=== PATIENT | male | born 1955 | race Caucasian/White ===

== ENCOUNTER 2018-08-10 19:53 | Inpatient (IN) | payer BC ==
[2018-08-10] MEDS ORDERED: ASPIRIN 81 MG TABLET, CHEWABLE PO ONE (20:29)
--- NOTE | 2018-08-10 20:31 | ER Document Report ---
ED Respiratory Problem - General Chief Complaint: Shortness Of Breath Stated Complaint: SHORTNESS OF BREATH Time Seen by Provider: 08/10/18 20:21 Mode of Arrival: Ambulatory Information source: Patient Notes: Patient is a 62-year-old male who presents with chief complaint of shortness of breath and chest tightness. Patient reports that the shortness of breath started on Saturday with exertion. He has been working on his yard over the last couple of days in the shortness of breath has become worse. Patient now reports tightness across his chest that started this afternoon states it felt like "acid reflux". Patient reports associated diaphoresis without nausea or radiation of the tightness/pain. Patient denies any recent illness however he states he may have felt like he has had chills. Patient denies any past medical history other than hypertension that he does not take medication for. Patient reports that he does not have a primary care provider. Agent denies use of tobacco however reports daily consumption of 2-4 beers per day, denies any illicit drug use. TRAVEL OUTSIDE OF THE [place] IN LAST 30 DAYS: Yes - Related Data Allergies/Adverse Reactions: No Known Allergies Allergy (Verified 08/10/18 19:54) Past Medical History - General Information source: Patient - Social History Smoking Status: Never Smoker Frequency of alcohol use: 2-4 beers per day Drug Abuse: None Lives with: Spouse/Significant other Family History: Reviewed & Not Pertinent - Past Medical History Cardiac Medical History: Reports: Hx Hypertension - "mild HTN" Denies: Hx Atrial Fibrillation, Hx Congestive Heart Failure, Hx Coronary Artery Disease, Hx Heart Attack, Hx Hypercholesterolemia, Hx Peripheral Vascular Disease, Hx Heart Murmur Pulmonary Medical History: Denies: Hx Tuberculosis Past Surgical History: Reports: Hx Tonsillectomy. Denies: Hx Appendectomy, Hx Bowel Surgery, Hx Cholecystectomy, Hx Coronary Artery Bypass Graft, Hx Gastric Bypass Surgery, Hx Herniorrhaphy, Hx Pacemaker - Immunizations Hx Diphtheria, Pertussis, Tetanus Vaccination: Yes Physical Exam - Vital signs Vitals: Temp Pulse Resp BP Pulse Ox 97.3 F 118 H 28 H 189/111 H 93 08/10/18 19:56 08/10/18 19:56 08/10/18 19:56 08/10/18 19:56 08/10/18 19:56 - Notes Notes: PHYSICAL EXAMINATION: GENERAL: Well-appearing, well-nourished and in moderate distress. HEAD: Atraumatic, normocephalic. EYES: Pupils equal round and reactive to light, extraocular movements intact, sclera anicteric, conjunctiva are normal. ENT: Nares patent, oropharynx clear without exudates. Moist mucous membranes. NECK: Normal range of motion, supple without lymphadenopathy LUNGS: Coarse breath sounds bilaterally with Rales throughout. HEART: Regular rate and rhythm without murmurs ABDOMEN: Soft, nontender, nondistended abdomen. No guarding, no rebound. No masses appreciated. Musculoskeletal: Normal range of motion, no pitting or edema. No cyanosis. NEUROLOGICAL: Cranial nerves grossly intact. Normal speech, normal gait. Normal sensory, motor exams PSYCH: Normal mood, normal affect. SKIN: Warm, Dry, normal turgor, no rashes or lesions noted. Course - Re-evaluation Re-evalutation: Patient arrives to bed 21, mildly tachypneic, heart rate 115, pulse oximetry 93- 94%. Crackles/rales auscultated bilaterally. Dr. Coates at bedside to evaluate this patient. Recommendation to start patient on BiPAP, give sublingual nitroglycerin and 20 mg of IV Lasix. 08/10/18 20:53 Reevaluated patient, patient resting on BiPAP, pulse ox has come up to 97%, respiratory rate down to 24, patient reports he is already feeling much improved. Currently awaiting lab work and chest x-ray. 08/10/18 22:15 Patient continues to rest comfortably on the BiPAP. Patient's lung sounds are improved. CBC and a venous blood gas are unremarkable. BNP is elevated at 2090. Initial troponin is 0.048. Patient does also have elevated AST and ALT. Chest x-ray appears to have vascular congestive pattern. Tachycardia and hypertension have significantly improved. 08/10/18 23:50 Patient continues to rest, spouse is at bedside. Vital signs are stable at this time. Awaiting second troponin and then will admit to hospitalist. 08/11/18 01:31 Repeat troponin 0.101, patient denies any chest pain whatsoever. Repeat EKG reveals a sinus rhythm, rate of [address] segment changes. Consulted Dr. Crook who accepts the patient for admission. - Vital Signs Vital signs: Temp Pulse Resp BP Pulse Ox 97.3 F 118 H 13 147/103 H 98 08/10/18 19:56 08/10/18 19:56 08/11/18 02:01 08/11/18 02:00 08/11/18 02:01 - Laboratory Result Diagrams: 08/10/18 20:30 08/10/18 20:30 Laboratory results interpreted by me: 08/10/18 08/10/18 20:30 20:30 AST 222 H ALT 179 H NT-Pro-B Natriuret Pep 0 H Discharge - Discharge Clinical Impression: CHF (congestive heart failure) Qualifiers: Heart failure type: unspecified Heart failure chronicity: acute Qualified Code( s): I50.9 - Heart failure, unspecified Condition: Stable Disposition: ADMITTED INPATIENT Admitting Provider: Hospitalist Unit Admitted: Telemetry
[2018-08-10] MEDS ORDERED: FUROSEMIDE INJ/PF 20 MG/2 ML SDV IV ONE (20:44)
[2018-08-10 20:48] LABS: ABSOLUTE EOSINOPHILS # (AUTO) 0.1 10^3/uL (0.0-0.6); ABSOLUTE LYMPHOCYTES (AUTO) 1.9 10^3/uL (0.5-4.7); ABSOLUTE MONOCYTES (AUTO) 0.6 10^3/uL (0.1-1.4); ABSOLUTE NEUT (AUTO) 4.1 10^3/uL (1.7-8.2); BASOPHILS % (AUTO) 0.4 % (0-2); EOSINOPHILS % (AUTO) 0.8 % (0-6); HEMATOCRIT 43.1 % (37.9-51.0); HEMOGLOBIN 15.2 g/dL (13.5-17.0); LYMPHOCYTES % (AUTO) 28.4 % (13-45); MEAN CORPUSCULAR HEMOGLOBIN 33.2 pg (27.0-33.4); MEAN CORPUSCULAR HGB CONC 35.2 g/dL (32.0-36.0); MEAN CORPUSCULAR VOLUME 94 fl (80-97); MONOCYTES % (AUTO) 9.3 % (3-13); PLATELET COUNT 224 10^3/uL (150-450); RED BLOOD COUNT 4.58 10^6/uL (4.35-5.55); RED CELL DISTRIBUTION WIDTH 13.8 % (11.5-14.0); SEGMENTED NEUTROPHILS % (AUTO) 61.1 % (42-78); TOTAL CELLS COUNTED % (AUTO) 100 %; VENOUS BLOOD BASE EXCESS 3.9 mmol/L; VENOUS BLOOD HCO3 29.9 mmol/L (20-32); VENOUS BLOOD PCO2 49.9 mmHg (35-63); VENOUS BLOOD PH 7.4 (7.30-7.42); WHITE BLOOD COUNT 6.8 10^3/uL (4.0-10.5)
[2018-08-10] MEDS: NITROGLYCERIN 0.4 MG/TAB 25 TAB/BOTTLE SL PRN ×2 (20:58→22:20)
[2018-08-10 21:11] LABS: ALANINE AMINOTRANSFERASE 179 U/L (21-72); ALBUMIN 4.4 g/dL (3.5-5.0); ALKALINE PHOSPHATASE 102 U/L (38-126); ANION GAP 13 (5-19); ASPARTATE AMINO TRANSFERASE 222 U/L (17-59); BILIRUBIN,DIRECT 0.4 mg/dL (0.0-0.4); BILIRUBIN,TOTAL 0.9 mg/dL (0.2-1.3); BLOOD UREA NITROGEN 14 mg/dL (7-20); CALCIUM 9.7 mg/dL (8.4-10.2); CARBON DIOXIDE 26 mmol/L (22-30); CHLORIDE 101 mmol/L (98-107); CREATINE KINASE 84 U/L (55-170); GLUCOSE 105 mg/dL (75-110); POTASSIUM 4.1 mmol/L (3.6-5.0); SODIUM 140.3 mmol/L (137-145); TOTAL PROTEIN 7.6 g/dL (6.3-8.2)
[2018-08-10 21:23] LABS: CREATINE KINASE MB 1.82 ng/mL (<4.55)
[2018-08-10 21:29] LABS: TROPONIN I 0.048 ng/mL
--- NOTE | 2018-08-10 22:25 | RADIOLOGY REPORT (SQ) ---
EXAM DESCRIPTION: CLINICAL HISTORY: 62 years Male chest pain COMPARISON: 03/11/2012 COMPLETED DATE/TME: 08/10/2018 20:29 FINDINGS: Heart is enlarged. There is prominence of the central pulmonary vasculature. Small amount of fluid or atelectasis along the minor fissure on the right. Suspect early interstitial infiltrate with Jair B lines extending to the periphery. No definite pleural fluid or alveolar consolidation. IMPRESSION: Cardiac enlargement with central pulmonary vascular congestion and interstitial infiltrate which may reflect developing edema
--- NOTE | 2018-08-10 22:49 | EKG REPORT ---
SEVERITY:- ABNORMAL ECG - SINUS TACHYCARDIA PROBABLE LEFT ATRIAL ABNORMALITY NONSPECIFIC INTRAVENTRICULAR CONDUCTION DELAY ABNRM R PROG, CONSIDER ASMI OR LEAD PLACEMENT : Confirmed by: Sai Kendall MD 10-Aug-2018 22:48:29
[2018-08-11 00:16] LABS: APPEARANCE,URINE CLEAR; BILIRUBIN,URINE NEGATIVE (NEGATIVE); COLOR,URINE YELLOW; GLUCOSE, URINE NEGATIVE (NEGATIVE); KETONES,URINE NEGATIVE (NEGATIVE); LEUKOCYTE ESTERASE,URINE NEGATIVE (NEGATIVE); NITRITE,URINE NEGATIVE (NEGATIVE); PROTEIN,URINE NEGATIVE (NEGATIVE); URINE SPECIFIC GRAVITY 1.008; UROBILINOGEN,URINE NEGATIVE mg/dL (<2.0)
[2018-08-11] MEDS ORDERED: PROMETHAZINE HCL 25 MG TABLET PO PRN (02:27)
[2018-08-11] MEDS ORDERED: TEMAZEPAM 7.5 MG CAPSULE PO PRN (02:27)
[2018-08-11] MEDS ORDERED: IPRATROPIUM/ALBUTEROL 0.5-2.5 MG/3 ML AMPUL NEB PRN (02:27)
[2018-08-11] MEDS ORDERED: ACETAMINOPHEN 325 MG TABLET PO PRN (02:27)
[2018-08-11] MEDS ORDERED: MAG HYDROX/AL HYDROX/SIMETH SUSP 30 ML UDCUP PO PRN (02:27)
[2018-08-11] MEDS ORDERED: PROMETHAZINE HCL INJ 25 MG/1 ML VIAL IV PRN ×2 (02:27→07:30)
[2018-08-11] MEDS ORDERED: METOPROLOL TARTRATE PF/INJ 5 MG/5 ML SDV IV PRN (02:35)
--- NOTE | 2018-08-11 03:03 | PDOC H&P ---
History of Present Illness Admission Date/PCP: 08/11/18 01:57 None Patient complains of: SOB History of Present Illness: RUBENS PARSONS is a 62 year old male Comes to the emergency department with progressive shortness of breath since last Saturday, Saturday afternoon has been worsening, associated with cough, clear sputum, wheezing, diaphoresis, chest tightness, fluttering sensation. Denies nausea, vomiting, fever, chills, dizziness, lightheadedness, lower extremities edema. Denies any cardiac problems. Positive orthopnea. Initial blood pressure was 189/111 with a pulse of 120. Patient admits having hypertension but he does not take any medication at home. Patient does not follow with any primary care provider. Initial pulse oximetry 9394%, patient was started on BiPAP, given sublingual nitroglycerin and 20 mg of IV Lasix. Patient has urinated about a liter. Chest x-ray shows cardiomegaly with pulmonary vascular congestion/pulmonary edema. BNP 2090. AST 222, ALT 129. Past Medical History Cardiac Medical History: Reports: Hypertension - "mild HTN" Denies: Atrial Fibrillation, Congestive Heart Failure, Coronary Artery Disease, Myocardial Infarction, Hyperlipidema, Peripheral Vascular Disease, Heart Murmur Pulmonary Medical History: Denies: Tuberculosis Past Surgical History Past Surgical History: Reports: Tonsillectomy Denies: Appendectomy, Cholecystectomy, Coronary Artery Bypass Graft, Gastric Bypass Surgery, Herniorrhaphy, Pacemaker Social History Information Source: Patient Lives with: Spouse/Significant other Smoking Status: Never Smoker Frequency of Alcohol Use: Social Amount of Alcoholic Beverages Per Day: 2-3 beers a day Hx Recreational Drug Use: No Hx Prescription Drug Abuse: No Family History Family History: Reviewed & Not Pertinent Family History: Alive, 81 years old with no medical conditions. Father had hemophilia, at 62 years old Parental Family History Reviewed: Yes - As above Children Family History Reviewed: NA Sibling(s) Family History Reviewed.: NA Medication/Allergy Home Medications: No Home Medications 03/07/12 Allergies/Adverse Reactions: No Known Allergies Allergy (Verified 08/10/18 19:54) Review of Systems Review of Systems: As outlined in the HPI, others negative Physical Exam Vital Signs: Temp Pulse Resp BP Pulse Ox 97.3 F 118 H 13 147/103 H 98 08/10/18 19:56 08/10/18 19:56 08/11/18 02:01 08/11/18 02:00 08/11/18 02:01 Additional comments: General appearance: Well-developed, well-nourished, alert and cooperative, and appears to be in no acute distress. On BiPAP Head: Normocephalic Eyes: PEERL, EOMI, vision is grossly intact. Ears: External auditory canal and tympanic membranes clear, hearing grossly intact. Nose: No nasal discharge. Throat: Oral cavity and pharynx normal. No inflammation, swelling, exudate or lesions. Neck: Neck supple, nontender without lymphadenopathy, masses or thyromegaly. Cardiac: Normal S1 and S2. No S3, S4 or murmurs. Rhythm is regular. There is no peripheral edema, cyanosis or pallor. Extremities are warm and well perfused. Capillary refill is less than 2 seconds. No carotid bruits. Lungs: Bilateral decreased breath sounds with one third inferior rales, no rhonchi or wheezing. Not using accessory muscles. Abdomen: Positive bowel sounds. Soft. Nondistended, nontender. No guarding or rebound. No masses. No hepatosplenomegaly Extremities: No significant deformity or joint abnormality. No edema. Peripheral pulses intact. No varicosities. Neurological: Cranial nerves II through XII grossly intact. Strength and sensation symmetric and intact throughout. Reflexes 2+ throughout. Skin: Skin normal color, texture and turgor with no lesions or eruptions, warm and dry. Psychiatric: The mental examination revealed the patient was oriented to person , place, and time. The patient was able to demonstrate good judgment on recent , without hallucinations, abnormal affect or abnormal behaviors. Results Laboratory Results: 08/10/18 08/10/18 08/10/18 20:30 20:30 20:30 WBC 6.8 RBC 4.58 Hgb 15.2 Hct 43.1 MCV 94 MCH 33.2 MCHC 35.2 RDW 13.8 Plt Count 224 Seg Neutrophils % 61.1 Lymphocytes % 28.4 Monocytes % 9.3 Eosinophils % 0.8 Basophils % 0.4 Absolute Neutrophils 4.1 Absolute Lymphocytes 1.9 Absolute Monocytes 0.6 Absolute Eosinophils 0.1 Absolute Basophils 0.0 VBG pH VBG pCO2 VBG HCO3 VBG Base Excess Sodium 140.3 Potassium 4.1 Chloride 101 Carbon Dioxide 26 Anion Gap 13 BUN 14 Creatinine 1.09 Est GFR ( Amer) > 60 Est GFR (Non-Af Amer) > 60 Glucose 105 Calcium 9.7 Total Bilirubin 0.9 Direct Bilirubin 0.4 AST 222 H ALT 179 H Alkaline Phosphatase 102 Creatine Kinase 84 CK-MB (CK-2) 1.82 Troponin I 0.048 NT-Pro-B Natriuret Pep 2090 H Total Protein 7.6 Albumin 4.4 Urine Color Urine Appearance Urine pH Ur Specific [place] Urine Protein Urine Glucose (UA) Urine Ketones Urine Blood Urine Nitrite Urine Bilirubin Urine Urobilinogen Ur Leukocyte Esterase Urine WBC (Auto) Urine RBC (Auto) U Hyaline Cast (Auto) Urine Mucus (Auto) Urine Ascorbic Acid 08/10/18 08/10/18 08/11/18 20:30 23:50 00:20 WBC RBC Hgb Hct MCV MCH MCHC RDW Plt Count Seg Neutrophils % Lymphocytes % Monocytes % Eosinophils % Basophils % Absolute Neutrophils Absolute Lymphocytes Absolute Monocytes Absolute Eosinophils Absolute Basophils VBG pH 7.40 VBG pCO2 49.9 VBG HCO3 29.9 VBG Base Excess 3.9 Sodium Potassium Chloride Carbon Dioxide Anion Gap BUN Creatinine Est GFR ( Amer) Est GFR (Non-Af Amer) Glucose Calcium Total Bilirubin Direct Bilirubin AST ALT Alkaline Phosphatase Creatine Kinase CK-MB (CK-2) Troponin I 0.101 NT-Pro-B Natriuret Pep Total Protein Albumin Urine Color YELLOW Urine Appearance CLEAR Urine pH 6.0 Ur Specific [place] 1.008 Urine Protein NEGATIVE Urine Glucose (UA) NEGATIVE Urine Ketones NEGATIVE Urine Blood NEGATIVE Urine Nitrite NEGATIVE Urine Bilirubin NEGATIVE Urine Urobilinogen NEGATIVE Ur Leukocyte Esterase NEGATIVE Urine WBC (Auto) 0 Urine RBC (Auto) 1 U Hyaline Cast (Auto) 4 Urine Mucus (Auto) RARE Urine Ascorbic Acid NEGATIVE Impressions: Chest X-Ray 08/10/18 20:29 IMPRESSION: Cardiac enlargement with central pulmonary vascular congestion and interstitial infiltrate which may reflect developing edema Assessment & Plan - Diagnosis (1) CHF exacerbation Qualifiers: Heart failure type: unspecified Qualified Code(s): I50.9 - Heart failure, unspecified Is this a current diagnosis for this admission?: Yes Plan: New onset CHF with patient. Comes with progressive shortness of breath. Chest x-ray found with cardiomegaly and pulmonary edema. Will keep the patient under telemetry monitoring. Lasix 40 mg IV every 12 hours. Cardiology consultation with Dr. Mc. Echocardiogram. Will start the patient on beta-blockers, JANET inhibitors and statins. Lipid panel and hemoglobin A1c in the morning. Good urine output almost a liter. We will sent urine drug screen. Will probably can wean him off BiPAP and start him on oxygen protocol via nasal cannula. Added magnesium to previous labs. (2) Hypertension Qualifiers: Hypertension type: unspecified Qualified Code(s): I10 - Essential (primary ) hypertension Is this a current diagnosis for this admission?: Yes Plan: Patient is aware that he has hypertension however he is not taking any antihypertensive medication and does not follow with any PCP. His initial blood pressure was 189/111 which came down to 144/97. I am starting the patient on Coreg, lisinopril, IV Lopressor as needed. (3) Transaminitis Is this a current diagnosis for this admission?: Yes Plan: AST 222 and ALT 179, no other to compare to. This is likely secondary to hepatic congestion. (4) Elevated troponin Is this a current diagnosis for this admission?: Yes Plan: Troponin 0 0.0 48, 0.101, patient does not have symptomatology of acute coronary syndrome. This is likely secondary to his CHF and tachycardia. Cardiac enzymes 3. - Time Time Spent: 30 to 50 Minutes - Inpatient Certification Based on my medical assessment, after consideration of the patient's comorbidities, presenting symptoms, or acuity I expect that the services needed warrant INPATIENT care.: Yes I certify that my determination is in accordance with my understanding of Medicare's requirements for reasonable and necessary INPATIENT services [42 CFR 412.3e].: Yes Medical Necessity: Risk of Complication if Not Cared For in Hospital
[2018-08-11 06:14] LABS: URINE AMPHETAMINES SCREEN NEGATIVE; URINE BENZODIAZEPINES SCREEN NEGATIVE; URINE COCAINE SCREEN NEGATIVE; URINE MARIJUANA (THC) SCREEN NEGATIVE; URINE METHADONE SCREEN NEGATIVE; URINE PHENCYCLIDINE SCREEN NEGATIVE
[2018-08-11 06:25] LABS: URINE BARBITURATES SCREEN NEGATIVE
--- NOTE | 2018-08-11 08:50 | EKG REPORT ---
SEVERITY:- ABNORMAL ECG - SINUS RHYTHM PROBABLE LEFT ATRIAL ABNORMALITY NONSPECIFIC INTRAVENTRICULAR CONDUCTION DELAY : Confirmed by: Abhilash Duke 11-Aug-2018 08:50:06
[2018-08-11] MEDS: ASPIRIN 81 MG TABLET, ENT COATED PO SCH (10:03)
[2018-08-11] MEDS: CARVEDILOL 6.25 MG TABLET PO SCH ×2 (10:03→23:00)
[2018-08-11] MEDS: LISINOPRIL 5 MG TABLET PO SCH (10:03)
[2018-08-11] MEDS: FUROSEMIDE INJ/PF 40 MG/4 ML SDV IV SCH ×2 (10:03→23:01)
[2018-08-11] MEDS: ENOXAPARIN SODIUM INJ 40 MG/0.4 ML DISP.SYRIN SUBCUT SCH (10:03)
[2018-08-11] MEDS ORDERED: REGADENOSON INJ 0.4 MG/5 ML DISP.SYRIN IV ONE (10:25)
[2018-08-11] MEDS ORDERED: CLOPIDOGREL BISULFATE 300 MG TABLET PO ONE (10:45)
--- NOTE | 2018-08-11 15:03 | Progress Note ---
Provider Note Provider Note: This patient was admitted by my colleague Dr. Crook this morning. When I visit, the patient is sitting up in bed comfortably with 2L O2. On. The patient states that he has congestive heart failure, although he has never been diagnosed with this. He states that it came on slowly over the past couple of weeks with worsening fatigue and shortness of breath with activity. He denies chest pain, but he states that he gets sweaty with even slight exertion. The patient had an elevated troponin upon arrival at the ED, but they have been trending down. The patient state that he is feeling better. He has received plavix, statin, beta vicki, and JANET I. I have considered adding a nitrate, but his blood pressures are marginal and I dont think he could tolerated. Dr. Duke has been consulted on this patient, and an echo and a stress test have been ordered and are pending. The patient is awake, alert, and oriented x 3. Heart and lung sounds are unremarkable. He is in no distress.
[2018-08-11] MEDS ORDERED: ATORVASTATIN CALCIUM 20 MG TABLET PO SCH (22:00)
--- NOTE | 2018-08-11 22:34 | PDOC CONSULTATION ---
Consultation Consult Date: 08/11/18 Attending physician:: ROSAMARIA LIM Consult reason:: CHF, Troponin elevated. History of Present Illness Admission Date/PCP: 08/11/18 01:57 Patient complains of: Shortness of breath History of Present Illness: RUBENS PARSONS is a 62 year old male Comes to the emergency department with progressive shortness of breath since last Saturday, Saturday afternoon has been worsening, associated with cough, clear sputum, wheezing, diaphoresis, chest tightness, fluttering sensation. Denies nausea, vomiting, fever, chills, dizziness, lightheadedness, lower extremities edema. Denies any cardiac problems. Positive orthopnea. Initial blood pressure was 189/111 with a pulse of 120. Patient admits having hypertension but he does not take any medication at home. Patient does not follow with any primary care provider. Initial pulse oximetry 9394%, patient was started on BiPAP, given sublingual nitroglycerin and 20 mg of IV Lasix. Patient has urinated about a liter. Chest x-ray shows cardiomegaly with pulmonary vascular congestion/pulmonary edema. BNP 2090. AST 222, ALT 129. This history obtained by the hospitalist was reviewed and confirmed. Patient does give history of previous hypertension but no history of CAD. Patient claims that he has been lazy about following up with physician. On more questioning, it seems that he has noted increasing fatigue, tiredness and shortness of breath for last several weeks. Patient felt much improved after IV Lasix. Past Medical History Cardiac Medical History: Reports: Hypertension - "mild HTN" Denies: Atrial Fibrillation, Congestive Heart Failure, Coronary Artery Disease, Myocardial Infarction, Hyperlipidema, Peripheral Vascular Disease, Heart Murmur Pulmonary Medical History: Denies: Tuberculosis Past Surgical History Past Surgical History: Reports: Tonsillectomy Denies: Appendectomy, Cholecystectomy, Coronary Artery Bypass Graft, Gastric Bypass Surgery, Herniorrhaphy, Pacemaker Social History Information Source: Patient Lives with: Spouse/Significant other Smoking Status: Never Smoker Frequency of Alcohol Use: Social Hx Recreational Drug Use: No Drugs: None Hx Prescription Drug Abuse: No - Advance Directive Resuscitation Status: Full Code Surrogate healthcare decision maker:: Patient's is the surrogate decision-maker Family History Family History: Reviewed & Not Pertinent Parental Family History Reviewed: Yes Children Family History Reviewed: Yes Sibling(s) Family History Reviewed.: Yes - Patient denies family history of premature CAD. Medication/Allergy Home Medications: Aspirin [Ecotrin 81 mg EC Tablet] 81 mg PO DAILY tabec 08/12/18 Atorvastatin Calcium [Lipitor 40 mg Tablet] 40 mg PO QHS #30 tablet 08/12/18 Carvedilol [Coreg 6.25 mg Tablet] 6.25 mg PO Q12 #60 tablet 08/12/18 Clopidogrel Bisulfate [Plavix 300 mg Tablet] 75 mg PO DAILY #90 tablet 08/12/18 Lisinopril [Prinivil 5 mg Tablet] 2.5 mg PO DAILY #30 tablet 08/12/18 Allergies/Adverse Reactions: No Known Allergies Allergy (Verified 08/10/18 19:54) Review of Systems Review of Systems: Please see history of present illness and past medical history as wall. Constitutional: No fever or chills reported. Head : No recent chronic headaches, recent head injury. Eyes: No recent eye pain, diplopia, redness, discharge, acute visual changes. Ears: No recent chronic ear pain, acute hearing loss, ear discharge. Oral cavity: No recent ulcerations, bleeding, oral cavity discomfort. Neck: No recent acute neck pain reported. Hematologic: No recent easy bruising or bleeding. Lymphatic: No recent lymph node enlargement reported. Cardiovascular system review: See history of present illness. Respiratory system review: No hemoptysis or blood clots in the lungs reported. Shortness of breath on exertion Gastrointestinal system review: Negative for any recent acute hematemesis, melena. Genitourinary system review: No recent acute or chronic hematuria, flank pain, UTI etc. reported. Skin system review: Negative for any recent abnormal bruising, no rash, no pruritus reported. Neurologic: No prior history of strokes, mini strokes, seizure disorder. Psychologic: No history of major psychosis or major depression reported. Musculoskeletal: Minor aches and pains reported. No acute joint swelling reported. Endocrine: No recent polyuria, polydipsia, recent heat or cold intolerance. Physical Exam Vital Signs: Temp Pulse Resp BP Pulse Ox 97.3 F 82 18 126/85 H 99 08/10/18 19:56 08/11/18 20:08 08/11/18 19:50 08/11/18 20:08 08/11/18 20:08 Intake & Output 08/10/18 08/11/1808/12/18 06:59 06:59 06:59 Intake Total 740 Balance 740 Exam: GENERAL: well-nourished and in no acute distress. Alert and oriented x3 HEAD: Atraumatic, normocephalic. EYES: Pupils equal round and reactive to light, extraocular movements intact, sclera anicteric, conjunctiva are normal. ENT: TMs normal, nares patent, oropharynx clear without exudates. Moist mucous membranes. No oral ulcerations or bleeding gums noted NECK: supple without lymphadenopathy. Trachea is central. No cervical or axillary lymphadenopathy noted. Carotids are 2+, JVD WNL LUNGS: Respiration seems nonlabored, no significant accessory muscle action noted. Breath sounds clear to auscultation bilaterally and equal noted. No wheezes rales or rhonchi noted. No significant dullness noted on percussion. CHEST: Palpation of the chest wall shows no significant chest wall tenderness. HEART: [place] [employer], No PSH, 1/6 TRUMAN aortic area, 1/6 hudson systolic murmur mitral area, no rubs, no gallops. ABDOMEN: Soft, no significant tenderness appreciated, normoactive bowel sounds. No guarding, no rebound. No rigidity noted . No masses appreciated. EXTREMITIES: Pedal pulses are 1-2+, no calf tenderness noted. No clubbing or cyanosis. negative pedal edema noted NEUROLOGICAL: Focused neurological exam showed no significant neurologic deficit. Normal speech, no focal weakness appreciated. PSYCH: Normal mood, normal affect. Judgment and insight within normal limits. SKIN: No significant ecchymosis, skin is noted to be warm. MUSCULOSKELETAL EXAM: No significant acute joint swelling noted. Results Laboratory Results: 08/11/18 08/11/18 08/11/18 06:45 12:48 18:25 Troponin I 0.065 0.049 0.037 EKG Comments: Sinus rhythm, left axis deviation, minor nonspecific T-wave inversions noted Impressions: Chest X-Ray 08/10/18 20:29 IMPRESSION: Cardiac enlargement with central pulmonary vascular congestion and interstitial infiltrate which may reflect developing edema Assessment & Plan - Diagnosis (1) CHF (congestive heart failure) Qualifiers: Heart failure type: unspecified Heart failure chronicity: acute Qualified Code(s): I50.9 - Heart failure, unspecified Is this a current diagnosis for this admission?: Yes (2) Elevated troponin Is this a current diagnosis for this admission?: Yes (3) Hypertension Qualifiers: Hypertension type: essential hypertension Qualified Code(s): I10 - Essential (primary) hypertension Is this a current diagnosis for this admission?: Yes - Notes Notes: Start lipitor 40mg QHs Plavix Beta Blockers ACEI/ ARB/Entresto Congestive heart failure: Patient has elevated BNP, presentation with shortness of breath and quick improvement with IV Lasix suggest that. Patient on chest x- ray is noted to have cardiomegaly and mild pulmonary venous congestion. A 2D echo has been ordered to evaluate CHF. Elevated troponin: This is at the indeterminate range. However need to rule out myocardial infarction. Recommend repeat EKGs and cardiac enzymes. Have ordered patient a nuclear stress test. Hypertension: Patient presented with severe hypertension but currently blood pressure under reasonable control. Blood pressure goal should be 135/85 or less. This was explained. JANET inhibitor/ beta-blockers are preferred. Because of severe hypertension, patient may benefit from a sleep study as an outpatient. - Time Time Spent: 30 to 50 Minutes - CODE STATUS was discussed, patient remains full code. Surrogate decision-maker unchanged. Multiple medical problems were addressed. More than 50% of the time spent coordinating care, discussing management plans with involved caregivers. Management plans discussed with involved personnels. Medical decision making was of moderate to high complexity , patient's has multiple comorbidities.
[2018-08-11] MEDS: ATORVASTATIN CALCIUM 40 MG TABLET PO SCH (23:01)
[2018-08-12 04:57] LABS: CHOLESTEROL 145.04 mg/dL (0-200); TRIGLYCERIDES 118 mg/dL (<150)
[2018-08-12 05:08] LABS: DIRECT LDL 61 mg/dL (<100)
[2018-08-12] MEDS ORDERED: CLOPIDOGREL BISULFATE 300 MG TABLET PO SCH (10:00)
--- NOTE | 2018-08-12 11:16 | PDOC DISCHARGE SUMMARY ---
General - Admit/Disc Date/PCP Admission Date/Primary Care Provider: 08/11/18 01:57 Discharge Date: 08/13/18 - Discharge Diagnosis (1) Cardiomyopathy Is this a current diagnosis for this admission?: Yes Summary: Possibly Ischemic EF was about [address] Duke discussed cardiac cath with patient for further evaluation however patient will like to pursue this as outpatient. (2) CHF exacerbation Is this a current diagnosis for this admission?: Yes Summary: Acute decompensation of combined diastolic and systolic (3) Elevated troponin Is this a current diagnosis for this admission?: Yes Summary: Likely due to Decompensated CHF Acute Coronary Syndrome ruled out (4) Hypertension Is this a current diagnosis for this admission?: Yes (5) Transaminitis Is this a current diagnosis for this admission?: Yes Summary: Likely congestive steatosis - Additional Information Resuscitation Status: Full Code Discharge Diet: Cardiac Discharge Activity: Activity As Tolerated Prescriptions: Atorvastatin Calcium [Lipitor 40 mg Tablet] 40 mg PO QHS #30 tablet Carvedilol [Coreg 6.25 mg Tablet] 6.25 mg PO Q12 #60 tablet Clopidogrel Bisulfate [Plavix 300 mg Tablet] 75 mg PO DAILY #90 tablet Lisinopril [Prinivil 5 mg Tablet] 2.5 mg PO DAILY #30 tablet Home Medications: Aspirin [Ecotrin 81 mg EC Tablet] 81 mg PO DAILY tabec 08/12/18 Atorvastatin Calcium [Lipitor 40 mg Tablet] 40 mg PO QHS #30 tablet 08/12/18 Carvedilol [Coreg 6.25 mg Tablet] 6.25 mg PO Q12 #60 tablet 08/12/18 Clopidogrel Bisulfate [Plavix 300 mg Tablet] 75 mg PO DAILY #90 tablet 08/12/18 Lisinopril [Prinivil 5 mg Tablet] 2.5 mg PO DAILY #30 tablet 08/12/18 History of Present Illness History of Present Illness: RUBENS PARSONS is a 62 year old male RUBENS PARSONS is a 62 year old male Comes to the emergency department with progressive shortness of breath since last Saturday, Saturday afternoon has been worsening, associated with cough, clear sputum, wheezing, diaphoresis, chest tightness, fluttering sensation. Denies nausea, vomiting, fever, chills, dizziness, lightheadedness, lower extremities edema. Denies any cardiac problems. Positive orthopnea. Initial blood pressure was 189/111 with a pulse of 120. Patient admits having hypertension but he does not take any medication at home. Patient does not follow with any primary care provider. Initial pulse oximetry 94%, patient was started on BiPAP, given sublingual nitroglycerin and 20 mg of IV Lasix. Chest x-ray shows cardiomegaly with pulmonary vascular congestion/pulmonary zayra Hospital Course Hospital Course: Patient was admitted with chest pain as well as difficulty breathing. He was found to have a slightly elevated troponin which did trend down. He had a nuclear stress test done as well as a two-dimensional echocardiogram which revealed congestive heart failure with both systolic and diastolic dysfunction with acute decompensation. Left ventricular ejection fraction was found to be around 35%. Stress test revealed predominantly fixed defect. Patient was initially considered for transfer to a tertiary center however he declined immediate transfer and will follow up with his plaster form maker next week. In the interim a life vest was arranged for patient due to his significant cardiomyopathy until cardiac catheterization can be done. Further history obtained from the patient does indicate that he drinks significant alcohol about 4-5 glasses of beer daily and so this may be consideration for his cardiomyopathy. His blood pressure was poorly controlled on admission and patient states that he was not taking his antihypertensives. With institution of beta-blockers and low-dose lisinopril his blood pressure has become increasingly uncontrolled. Physical Exam Vital Signs: Temp Pulse Resp BP Pulse Ox 98.3 F 71 18 98/66 L 98 08/12/18 04:00 08/12/18 04:00 08/12/18 04:00 08/12/18 04:00 08/12/18 04:00 Intake & Output 08/11/18 08/12/18 08/13/18 06:59 06:59 06:59 Intake Total 1340 Balance 1340 Weight 92.4 kg General appearance: PRESENT: no acute distress, well-developed, well-nourished Head exam: PRESENT: atraumatic, normocephalic Eye exam: PRESENT: conjunctiva pink, EOMI, PERRLA. ABSENT: scleral icterus Ear exam: PRESENT: normal external ear exam Mouth exam: PRESENT: moist, tongue midline Neck exam: ABSENT: carotid bruit, JVD, lymphadenopathy, thyromegaly Respiratory exam: PRESENT: clear to auscultation pardeep. ABSENT: rales, rhonchi, wheezes Cardiovascular exam: PRESENT: RRR. ABSENT: diastolic murmur, rubs, systolic murmur Pulses: PRESENT: normal dorsalis pedis pul Vascular exam: PRESENT: normal capillary refill GI/Abdominal exam: PRESENT: normal bowel sounds, soft. ABSENT: distended, guarding, mass, organolmegaly, rebound, tenderness Rectal exam: PRESENT: deferred Extremities exam: PRESENT: full ROM. ABSENT: calf tenderness, clubbing, pedal edema Neurological exam: PRESENT: alert, awake, oriented to person, oriented to place , oriented to time, oriented to situation, CN II-XII grossly intact. ABSENT: motor sensory deficit Psychiatric exam: PRESENT: appropriate affect, normal mood. ABSENT: homicidal ideation, suicidal ideation Skin exam: PRESENT: dry, intact, warm. ABSENT: cyanosis, rash Results Laboratory Results: 08/12/18 04:03 Magnesium 2.0 Triglycerides 118 Cholesterol 145.04 LDL Cholesterol Direct 61 VLDL Cholesterol 24.0 HDL Cholesterol 49 08/11/18 08/11/18 08/11/18 06:45 12:48 18:25 Troponin I 0.065 0.049 0.037 Impressions: Chest X-Ray 08/10/18 20:29 IMPRESSION: Cardiac enlargement with central pulmonary vascular congestion and interstitial infiltrate which may reflect developing edema Qualifiers - * PATIENT BEING DISCHARGED WITH ANY OF THE FOLLOWING DIAGNOSIS: Heart Failure VTE patient discharged on overlapping Therapy?: No AL Pt being discharged on Aspirin therapy?: Yes AL Pt being discharged on Statins?: Yes AL Pt discharged ACEI/ARBS?: Yes HF Pt being discharged on ACEI for LVEF less than 40%?: Yes HF Pt being discharged on ARBS for LVEF less than 40%?: No Reason(s) for not prescribing ARBS:: Medical Contraindication HF Pt with Afib discharged with Warfarin?: No Reason(s) for not prescribing Warfarin:: Not indicated HF Pt discharged on evidence-based Beta Emily:: Yes Plan Time Spent: Greater than 30 Minutes
[2018-08-12] MEDS: LISINOPRIL 5 MG TABLET PO SCH (13:05)
[2018-08-12] MEDS: ASPIRIN 81 MG TABLET, ENT COATED PO SCH (13:05)
[2018-08-12] MEDS: CARVEDILOL 6.25 MG TABLET PO SCH ×2 (13:05→22:16)
[2018-08-12] MEDS: ENOXAPARIN SODIUM INJ 40 MG/0.4 ML DISP.SYRIN SUBCUT SCH (13:06)
[2018-08-12] MEDS: FUROSEMIDE INJ/PF 40 MG/4 ML SDV IV SCH ×2 (13:06→22:17)
--- NOTE | 2018-08-12 13:13 | DRAGON STRESS TEST REPORT ---
INTRAVENOUS LEXISCAN CARDIOLITE STRESS TEST USING SINGLE PHOTON EMMISION COMPUTERIZED TOMOGRAPHIC. DATE OF PROCEDURE: August 12, 2018, INDICATION : Chest tightness and abnormal troponin I CARDIAC RISK FACTORS: Hypertension, dyslipidemia RESTING EKG: Sinus rhythm, nonprogression of R wave anterior precordial lead, no baseline ST-T wave changes, minor nonspecific IVCD STRESS EKG: No significant ST segment changes noted with LexiScan bolus REASON FOR TERMINATION: Protocol. PROCEDURE REPORT: Baseline heart rate 92 beats per minute with blood pressure of 129/85. Patient had no significant complaints. Patient was bolused with Lexiscan 0.4 mg intravenously followed by saline bolus. Heart rate at 2 minutes post bolus 96 with a blood pressure of 135/86. 3 minutes post bolus heart rate 91 with blood pressure of 131/85. No significant EKG changes were noted. Patient had no significant complaints during the procedure or postprocedure. CONCLUSIONS: Normal EKG and hemodynamic response to IV LexiScan. NUCLEAR DATA: At rest the patient was given 14.39 millicuries of technetium 99 sestamibi injected intravenously. As per protocol rest gated SPECT images were obtained. On day of stress test, the patient was given intravenous LexiScan at a dose of 0.4 mg in 5 mL intravenously, followed by flush with normal saline. Subsequently the stress dose of 41.2 millicuries of technetium 99 sestamibi was injected intravenously. As per protocol stress gated images were obtained. NUCLEAR INTERPRETATION: Both raw and processed data were used for interpretation. Visual, qualitative, computer-generated quantitative data was used. There was good myocardial uptake of technetium compound. Motion artifact and soft tissue attenuations were noted. Increased visceral uptake was noted. No definitive areas of transient perfusion defect noted, severe fixed defect noted involving the inferior wall, moderate fixed defect noted in the mid anterior wall. EKG gated imaging showed LV EF at 20 %, rest and stress gated EF similar visually. T. I D. ratio was 1.09. Lung heart ratio noted to be within normal limits 0.46. No significant extracardiac and abnormal radiotracer activities were noted. RV free wall uptake was noted to be WNL. IMPRESSION: Also refer to comments under nuclear interpretation. Also test results needs to be interpreted in the context of pretest probability. 1. No definitive areas of transient perfusion defect noted. 2. Severe fixed defect noted involving the inferior wall consistent with severe scar, a moderate fixed defect noted in the mid anterior wall consistent with moderate scar. 3. EKG gated imaging shows left ventricular ejection fraction of approx. 20 %. 4. Clinical correlation requested as worse disease and or balanced ischemia could be missed. In approximately 10% of the cases Lexiscan may not cause adequate vasodilatory stress. RECOMMENDATIONS: Aggressive risk factor modification and medical management. Low threshold for rescheduling heart catheterization. Close cardiology follow-up is also recommended. Clinical correlation with echocardiogram derived ejection fraction. Inability to exercise by itself can lead to increased cardiovascular event risks. Consider cardiology consultation and or follow-up if clinically indicated. I am available for cardiology evaluation and consultation if requested by the green ware caster, unless patient already has a software testing specialist. Dr. Feliciano Duke. MRCP Board certified in cardiology and sleep medicine. Board certified in nuclear cardiology, adult echocardiography. DEVI
--- NOTE | 2018-08-12 13:30 | XCELERA REPORT ---
[address] [address] Transthoracic Echocardiogram Report Name: RUBENS PARSONS Age: 62 yrs Gender: Male : 1955 Patient Status: Inpatient Patient Location: [address] [place] [address] Study Date: 08/12/2018 09:31 AM Procedure: A complete two-dimensional transthoracic echocardiogram was performed (2D, M-mode, spectral and color flow Doppler). The study was technically adequate with some images being suboptimal in quality. Reason For Study: new onset chf Ordering Physician: ROSAMARIA LIM Performed By: Elisa Lopes Interpretation Summary LV EF is 35% Left ventricular systolic function is moderate to severely reduced. The left ventricle is mildly dilated. Doppler measurements suggest reversible restrictive left ventricular relaxation, which is associated with grade III/IV or moderate diastolic dysfunction There are regional wall motion abnormalities as specified. There is inferior wall hypokinesis There is apical wall hypokinesis The right ventricle is mildly dilated. The right ventricular systolic function is normal. The left atrium is mildly dilated. The right atrium is normal in size There is a trace to mild amount of mitral regurgitation There is no mitral valve stenosis. No aortic regurgitation is present. There is no aortic valve stenosis There is a trace or physiologic amount of tricuspid regurgitation Tricuspid regurgitation jet envelope not well defined to measure RV systolic pressure accurately. The aortic root is not well visualized but is probably normal size. The inferior vena cava appeared normal and decreased > 50% with respiration (RAP 5-10 mmHg) There is no pericardial effusion. MMode/2D Measurements & Calculations RVDd: 3.9 cm LVIDd: 7.7 cm FS: 20.4 % Ao root diam: 3.2 cm IVSd: 0.80 cm LVIDs: 6.1 cm EDV(Teich): 315.4 ml Ao root area: 8.1 cm2 LVPWd: 0.76 cm ESV(Teich): 188.2 ml EF(Teich): 40.3 % Doppler Measurements & Calculations Ao V2 max: 110.5 cm/sec LV V1 max P.4 mmHg PA V2 max: 92.7 cm/sec Ao max P.9 mmHg LV V1 max: 104.8 cm/sec PA max P.4 mmHg Left Ventricle The left ventricle is mildly dilated. Left ventricular systolic function is moderate to severely reduced. LV EF is 35%. Doppler measurements suggest reversible restrictive left ventricular relaxation, which is associated with grade III/IV or moderate diastolic dysfunction. There are regional wall motion abnormalities as specified. There is inferior wall hypokinesis. There is apical wall hypokinesis. Right Ventricle The right ventricle is mildly dilated. There is normal right ventricular wall thickness. The right ventricular systolic function is normal. Atria The right atrium is normal in size. The left atrium is mildly dilated. Interarterial septum not well visualized and not well dopplered. Cannot comment on ASD/PFO presence. Mitral Valve The mitral valve is grossly normal. There is no mitral valve stenosis. There is a trace to mild amount of mitral regurgitation. Aortic Valve The aortic valve is grossly normal. There is no aortic valve stenosis. No aortic regurgitation is present. Tricuspid Valve The tricuspid valve is not well visualized, but is grossly normal. There is no tricuspid stenosis. There is a trace or physiologic amount of tricuspid regurgitation. Tricuspid regurgitation jet envelope not well defined to measure RV systolic pressure accurately. Pulmonic Valve The pulmonic valve is not well visualized. Great Vessels The aortic root is not well visualized but is probably normal size. The inferior vena cava appeared normal and decreased > 50% with respiration (RAP 5-10 mmHg). Effusions There is no pericardial effusion. : ROSAMARIA LIM > Abhilash Duke
--- NOTE | 2018-08-12 18:51 | PDOC PROGRESS REPORT ---
Subjective Progress Note for:: 08/12/18 Subjective:: Nuclear stress test was performed without any complications. Results were subsequently discussed. 2D echo results were also reviewed with the patient. Patient seems to be doing better with gradual improvement. Pt is denying any chest arm or neck discomfort. Patient denying any PND, orthopnea. Patient denied any sustained palpitations, dizziness, syncope, near syncope. Patient denying any fever chills. Patient denying any other significant discomfort. Patient is maintaining sinus rhythm. Review of systems: Rest review of systems negative. Medications: Medications have been reviewed. Reason For Visit: CHF EXACERBATION Physical Exam Vital Signs: Temp Pulse Resp BP Pulse Ox 97.7 F 75 16 123/79 100 08/12/18 12:43 08/12/18 12:43 08/12/18 12:43 08/12/18 12:43 08/12/18 12:43 Intake & Output 08/11/18 08/12/18 08/13/18 06:59 06:59 06:59 Intake Total 1340 Balance 1340 Weight 92.4 kg Results Laboratory Results: 08/12/18 04:03 Magnesium 2.0 Triglycerides 118 Cholesterol 145.04 LDL Cholesterol Direct 61 VLDL Cholesterol 24.0 HDL Cholesterol 49 08/11/18 08/11/18 08/11/18 06:45 12:48 18:25 Troponin I 0.065 0.049 0.037 Impressions: Chest X-Ray 08/10/18 20:29 IMPRESSION: Cardiac enlargement with central pulmonary vascular congestion and interstitial infiltrate which may reflect developing edema Assessment & Plan - Diagnosis (1) CHF (congestive heart failure) Qualifiers: Heart failure type: unspecified Heart failure chronicity: acute Qualified Code(s): I50.9 - Heart failure, unspecified Is this a current diagnosis for this admission?: Yes (2) Elevated troponin Is this a current diagnosis for this admission?: Yes (3) Hypertension Qualifiers: Hypertension type: essential hypertension Qualified Code(s): I10 - Essential (primary) hypertension Is this a current diagnosis for this admission?: Yes (4) Cardiomyopathy Qualifiers: Cardiomyopathy type: unspecified Qualified Code(s): I42.9 - Cardiomyopathy , unspecified Is this a current diagnosis for this admission?: Yes - Notes Notes: CHF: Based on further evaluation it seems patient has both systolic and diastolic dysfunction. LVEF is felt to be around 35%. Patient will benefit from a LifeVest and further optimization of therapy. Elevated troponin I: This was evaluated with a nuclear stress test which showed predominantly fixed defect but since patient also has significant LV systolic dysfunction, patient was recommended to undergo a heart catheterization. In this regard, offered transfer to tertiary care this but patient declined transfer. Hypertension: Blood pressure under now satisfactory control. Cardiomyopathy: Most likely ischemic based on nuclear stress test but cannot rule out idiopathic, hypertensive heart disease etc.. - Time Time with patient: Greater than 35 minutes - Significant time spent discussing results of the nuclear stress test with the patient. Also discussed placement of LifeVest, close cardiology monitoring. Have recommended patient to schedule an outpatient heart catheter to tertiary care center. Will be happy to arrange that. Medications reviewed and adjusted accordingly: Yes
[2018-08-12] MEDS ORDERED: LORAZEPAM 1 MG TABLET PO PRN (20:15)
[2018-08-12] MEDS: ATORVASTATIN CALCIUM 40 MG TABLET PO SCH (22:16)
[2018-08-12] MEDS: DOCUSATE SODIUM 100 MG CAPSULE PO SCH (22:17)
[2018-08-13 05:37] LABS: ALANINE AMINOTRANSFERASE 81 U/L (21-72); ALBUMIN 3.7 g/dL (3.5-5.0); ALKALINE PHOSPHATASE 69 U/L (38-126); ANION GAP 9 (5-19); ASPARTATE AMINO TRANSFERASE 32 U/L (17-59); BILIRUBIN,DIRECT 0.3 mg/dL (0.0-0.4); BILIRUBIN,TOTAL 1.1 mg/dL (0.2-1.3); BLOOD UREA NITROGEN 18 mg/dL (7-20); CALCIUM 9.2 mg/dL (8.4-10.2); CARBON DIOXIDE 29 mmol/L (22-30); CHLORIDE 101 mmol/L (98-107); GLUCOSE 102 mg/dL (75-110); POTASSIUM 3.8 mmol/L (3.6-5.0); TOTAL PROTEIN 6.5 g/dL (6.3-8.2)
[2018-08-13] MEDS: DOCUSATE SODIUM 100 MG CAPSULE PO SCH (11:51)
[2018-08-13] MEDS: FUROSEMIDE INJ/PF 40 MG/4 ML SDV IV SCH (11:51)
[2018-08-13] MEDS: LISINOPRIL 5 MG TABLET PO SCH (11:51)
[2018-08-13] MEDS: CARVEDILOL 6.25 MG TABLET PO SCH (11:51)
[2018-08-13] MEDS: ASPIRIN 81 MG TABLET, ENT COATED PO SCH (11:52)
[2018-08-13] MEDS: ENOXAPARIN SODIUM INJ 40 MG/0.4 ML DISP.SYRIN SUBCUT SCH (11:58)
[2018-08-13 12:05] VITALS: BP 122/77
--- NOTE | 2018-08-13 15:44 | PDOC PROGRESS REPORT ---
Subjective Progress Note for:: 08/12/18 Subjective:: Denies chest pain, sob. Plan was for dc home once lifevest available Reason For Visit: CHF EXACERBATION Physical Exam Vital Signs: Temp Pulse Resp BP Pulse Ox 97.7 F 75 16 123/79 100 08/12/18 12:43 08/12/18 12:43 08/12/18 12:43 08/12/18 12:43 08/12/18 12:43 Intake & Output 08/11/18 08/12/18 08/13/18 06:59 06:59 06:59 Intake Total 1340 Balance 1340 Weight 92.4 kg General appearance: PRESENT: no acute distress, well-developed, well-nourished Head exam: PRESENT: atraumatic, normocephalic Eye exam: PRESENT: conjunctiva pink, EOMI, PERRLA. ABSENT: scleral icterus Ear exam: PRESENT: normal external ear exam Mouth exam: PRESENT: moist, tongue midline Neck exam: ABSENT: carotid bruit, JVD, lymphadenopathy, thyromegaly Respiratory exam: PRESENT: clear to auscultation pardeep. ABSENT: rales, rhonchi, wheezes Cardiovascular exam: PRESENT: RRR. ABSENT: diastolic murmur, rubs, systolic murmur Pulses: PRESENT: normal dorsalis pedis pul Vascular exam: PRESENT: normal capillary refill GI/Abdominal exam: PRESENT: normal bowel sounds, soft. ABSENT: distended, guarding, mass, organolmegaly, rebound, tenderness Rectal exam: PRESENT: deferred Extremities exam: PRESENT: full ROM. ABSENT: calf tenderness, clubbing, pedal edema Neurological exam: PRESENT: alert, awake, oriented to person, oriented to place , oriented to time, oriented to situation, CN II-XII grossly intact. ABSENT: motor sensory deficit Psychiatric exam: PRESENT: appropriate affect, normal mood. ABSENT: homicidal ideation, suicidal ideation Skin exam: PRESENT: dry, intact, warm. ABSENT: cyanosis, rash Results Laboratory Results: 08/12/18 04:03 Magnesium 2.0 Triglycerides 118 Cholesterol 145.04 LDL Cholesterol Direct 61 VLDL Cholesterol 24.0 HDL Cholesterol 49 08/11/18 08/11/18 08/11/18 06:45 12:48 18:25 Troponin I 0.065 0.049 0.037 Impressions: Chest X-Ray 08/10/18 20:29 IMPRESSION: Cardiac enlargement with central pulmonary vascular congestion and interstitial infiltrate which may reflect developing edema Assessment & Plan - Diagnosis (1) Cardiomyopathy Qualifiers: Cardiomyopathy type: unspecified Qualified Code(s): I42.9 - Cardiomyopathy , unspecified Is this a current diagnosis for this admission?: Yes (2) CHF exacerbation Qualifiers: Heart failure type: unspecified Qualified Code(s): I50.9 - Heart failure, unspecified Is this a current diagnosis for this admission?: Yes (3) Elevated troponin Is this a current diagnosis for this admission?: Yes (4) Hypertension Qualifiers: Hypertension type: essential hypertension Qualified Code(s): I10 - Essential (primary) hypertension Is this a current diagnosis for this admission?: Yes - Time Time Spent with patient: 15-24 minutes Medications reviewed and adjusted accordingly: Yes Anticipated discharge: Home Within: within 24 hours - Inpatient Certification Based on my medical assessment, after consideration of the patient's comorbidities, presenting symptoms, or acuity I expect that the services needed warrant INPATIENT care.: Yes Medical Necessity: Need For Continuous Telemetry Monitoring
== END 2018-08-13 13:19 | disposition home or self-care (01) | DRG 292 ==
LOC: ER 19:53 → EH 08-11 01:57 → 5 08-11 15:31
PROVIDERS: ADMIT Internal Medicine; ATTEND Internal Medicine
DX: I50.41 Acute combined systolic (congestive) and diastolic (congestive) heart failure (principal); I42.9 Cardiomyopathy, unspecified; I10 Essential (primary) hypertension; Z79.02 Long term (current) use of antithrombotics/antiplatelets; Z79.82 Long term (current) use of aspirin; Z79.899 Other long term (current) drug therapy
CPT/HCPCS: 36415; 71045; 78452; 80048; 80053; 80061; 80076; 80307; 81001; 82550; 82553; 82803; 83036; 83605; 83735; 83880; 84484; 85025; 93005; 93010; 93017; 93306; 94660; 96374; 99285; A9500; J1650; J1940; J2785; J3490; Q9969